=== PATIENT | female | born 1985 | race Hispanic/Latino ===

== ENCOUNTER 2022-10-20 22:17 | Emergency (ER) | payer OTHER, SELFPAY ==
[2022-10-20] MEDS ORDERED: traMADol HCl 50 MG TAB ONE (22:45)
[2022-10-20] MEDS ORDERED: cefTRIAXone (ROCEPHIN) 1 GM VIAL ONE (22:46)
[2022-10-20] MEDS ORDERED: Lidocaine 1% (PF) 30 ML VIAL ONE (22:46)
== END 2022-10-20 23:10 | disposition home or self-care (01) ==
LOC: NAV ERS 22:17
DX: K04.7 Periapical abscess without sinus (principal); R59.9 Enlarged lymph nodes, unspecified
CPT/HCPCS: 96372; 99283; J0696; J2001